=== PATIENT | female | born 1950 | race Caucasian/White ===

== ENCOUNTER → 2017-09-20 | Outpatient (CLI) | payer MEDICARE, BC ==
--- NOTE | 2017-09-20 15:15 | US ---
EXAMINATION TYPE: US thyroid st tissue head/neck DATE OF EXAM: 09/20/2017 COMPARISON: 04/18/2016 and 03/31/2015 CLINICAL HISTORY: E04.1 Thyroid Nodule. Follow up thyroid nodules GLAND SIZE: Right Lobe: 4.0 x 1.3 x 1.2 cm Overall Parenchyma: heterogenous Left Lobe: 4.2 x 1.2 x 1.8 cm Overall Parenchyma: heterogeneous Isthmus Thickness: 0.3 cm NODULES RIGHT: # of nodules measured on right: 1 1. 0.8 X 0.4 x 0.8 cm hypoechoic solid nodule at the mid pole with well-defined margins; . This no dule is wider than tall and shows intranodular vascularity. Prior size: 0.9 x 0.4 x 0.8 cm LEFT: # of nodules measured on left: 3 1. 0.9 X 0.6 x 0.8 cm hypoechoic solid nodule at the lateral/lower pole with well-defined margins; . This nodule is wider than tall and shows intranodular vascularity. Prior size: 0.9 x 0.5 x 0.8 cm 2. 1.3 X 0.7 x 1.1 cm mixed nodule at the mid/lower pole with well-defined margins; . This nodule i s wider than tall and shows intranodular vascularity. Prior size: 1.2 x 0.5 x 0.8 cm 3. 0.5 X 0.3 x 0.4 cm hypoechoic complex nodule at the upper pole with well-defined margins; . This nodule is wider than tall and shows intranodular vascularity. Prior size: 0.6 x 0.3 x 0.6 cm ISTHMUS: # of nodules measured in the isthmus: 1. 0.4 X 0.2 x 0.4 cm hypoechoic complex nodule at the right portion with well-defined margins; . This nodule is wider than tall and shows no intranodular vascularity. Prior size: 0.5 x 0.2 x 0.5 cm Little change compared to prior exam. Multiple thyroid nodules noted Large complex vascular hypoechoic area left neck under left ear = 5.7 x 2.1 x 4.4cm . This could rela te to an edematous parotid gland with hypervascularity or left neck mass. CT is recommended. IMPRESSION: 1. Hypoechoic hypervascular region of the left upper neck is incidentally identified and could repres ent an edematous parotid gland/sialoadenitis or neck mass. Further anatomic delineation is recommende d with CT without and with contrast to evaluate for enhancing mass. 2. Minimal interval growth of a single nodule on the left in a multinodular goiter. Continued surveil vianca is recommended.
== END | disposition home or self-care (01) ==
LOC: RADUSWWP 13:13
PROVIDERS: ATTEND Otolaryngology
DX: E04.2 Nontoxic multinodular goiter (principal)
CPT/HCPCS: 76536